=== PATIENT | male | born 1985 | race Caucasian/White ===

== ENCOUNTER 2021-07-12 18:46 | Emergency (ER) | payer SELFPAY ==
[~2021-07-12] VITALS: Ht 180.3 cm; Wt 111.1 kg
[2021-07-12] MEDS ORDERED: FLUORESCEIN SOD OPTH TEST STRIP EACHEYE ONE (19:00)
[2021-07-12] MEDS ORDERED: HYDROcodone-ACET 5/325MG TAB PO ONE (19:30)
[2021-07-12] MEDS ORDERED: TETANUS-DIPTH-ACEL PERTUSSIS 0.5ML SYR Tdap IM ONE (19:30)
[2021-07-12] MEDS ORDERED: TETRACAINE HCL 0.5% OPTH(EYE) SOLN 4ML RIGHTEYE ONE (19:30)
[2021-07-12 19:50] VITALS: BP 154/98
[2021-07-12] MEDS ORDERED: CIP03OS RIGHTEYE (22:24)
== END 2021-07-12 22:34 | disposition home or self-care (01) ==
LOC: ER 18:47
DX: S05.51XA Penetrating wound with foreign body of right eyeball, initial encounter (principal); X58.XXXA Exposure to other specified factors, initial encounter; Y93.89 Activity, other specified; Y92.89 Other specified places as the place of occurrence of the external cause; Y99.8 Other external cause status
CPT/HCPCS: 70480; 90471; 90715

== ENCOUNTER 2023-01-01 14:55 | Emergency (ER) | payer OTHER ==
[~2023-01-01] VITALS: Ht 180.3 cm; Wt 113.9 kg
[~2023-01-01 14:55] MED LIST: CIP03OS RIGHTEYE
[2023-01-01] MEDS ORDERED: ceFAZolin 1GM/50ML 50 ML IV ONE (15:30)
[2023-01-01 15:45] VITALS: PULSE 83; RESP 18; O2SAT 98
[2023-01-01] MEDS ORDERED: KETOROLAC TROMETH 30 MG/ML 1ML VIAL IV ONE (15:45)
[2023-01-01] MEDS ORDERED: MORPHINE SULFATE 4 MG/ML SYR/VIAL IV ONE ×2 (15:45→19:15)
[2023-01-01] MEDS ORDERED: ONDANSETRON HCL 4 MG/2 ML VIAL IV ONE ×2 (16:00→19:15)
[2023-01-01 16:14] LABS: Basophils # (auto) 0.1 10 ^3/uL (0-0.2); Basophils % (auto) 0.7 % (0.0-2.0); Eosinophils # (auto) 0.1 10 ^3/uL (0-0.8); Eosinophils % (auto) 1.5 % (0.0-7.0); Hematocrit 42.4 % (41.0-53.0); Hemoglobin 14.5 g/dL (13.5-17.5); Lymphocytes # (auto) 2.4 10 ^3/uL (0.4-5.4); Lymphocytes % (auto) 24.8 % (10.0-50.0); Mean Corpuscular Hemoglobin 30.4 pg (28.0-32.0); Mean Corpuscular Hgb Conc. 34.2 g/dL (32.0-36.0); Mean Corpuscular Volume 88.8 fL (80.0-100.0); Monocytes # (auto) 0.8 10 ^3/uL (0-1.3); Monocytes % (auto) 8.5 % (0.0-12.0); Neutrophils # (auto) 6.2 10 ^3/uL (1.6-8.6); Neutrophils % (auto) 64.5 % (37.0-80.0); Nucleated Red Blood Cells % 0.1 %; Red Blood Cells 4.77 10^6/uL (4.5-5.90); Red Cell Distribution Width 13.1 % (11.8-14.3); White Blood Cell 9.7 10^3/uL (4.4-10.8)
[2023-01-01 16:35] LABS: Alanine Aminotransferase 30 U/L (7-40); Albumin 4.6 g/dL (3.2-4.8); Alkaline Phosphatase 87 U/L (46-116); Anion Gap 10.9 (5-15); Aspartate Aminotransferase 14 U/L (13-40); BUN/Creatinine Ratio 12.5 (10.0-20.0); Bilirubin, Total 0.4 mg/dL (0.2-1.0); Blood Urea Nitrogen 13 mg/dL (9-23); Calcium 9.6 mg/dL (8.7-10.4); Carbon Dioxide 23.1 mmol/L (20-30); Chloride 107 mmol/L (98-107); Glucose 115 mg/dL (74-106); Potassium 4.1 mmol/L (3.5-5.1); Sodium 141 mmol/L (136-145); Total Protein 7.3 g/dL (5.7-8.2)
[2023-01-01 16:43] LABS: INR 1.04 (0.9-1.15); Partial Thromboplastin Time 25.2 SEC (24.5-34.5); Prothrombin Time 10.9 sec (9.3-11.8)
[2023-01-01 21:43] VITALS: BP 170/98; PULSE 56; RESP 18; TEMP 98.4; O2SAT 100
== END 2023-01-01 22:10 | disposition short-term general hospital (02) ==
LOC: ER 14:55
DX: S62.600B Fracture of unspecified phalanx of right index finger, initial encounter for open fracture (principal); S60.450A Superficial foreign body of right index finger, initial encounter; W45.8XXA Other foreign body or object entering through skin, initial encounter; Y93.E9 Activity, other interior property and clothing maintenance; Y92.89 Other specified places as the place of occurrence of the external cause; Y99.8 Other external cause status
CPT/HCPCS: 36415; 73130; 80053; 85025; 85610; 85730; 96365; 96375; 96376; 99285; J0690; J1885; J2270; J2405